=== PATIENT | male | born 1975 | race Caucasian/White ===

== ENCOUNTER 2019-04-23 15:53 | Day surgery (SDC) | payer OTHER ==
[~2019-04-23] VITALS: Ht 182.9 cm; Wt 140.9 kg
[2019-04-23 16:24] VITALS: BP 164/77; PULSE 63; TEMP 97.6
--- NOTE | 2019-04-23 16:34 | NUR ---
PATIENT ARRIVED TO ROOM 347. PATIENT ORIENTED TO ROOM. PRESENT AT THE BEDSIDE. CALL LIGHT WITHIN REACH.
[2019-04-23] MEDS ORDERED: GLUCOPHAGE850 MG/TAB PO (18:12)
[2019-04-23] MEDS ORDERED: GILENYA0.5 MG PO (18:15)
--- NOTE | 2019-04-23 19:10 | NUR ---
REPORT GIVEN TO MATA DAWKINS.
[2019-04-23 19:45] VITALS: BP 163/72; PULSE 66; TEMP 98.3
[2019-04-23 23:35] VITALS: BP 141/78; PULSE 67; TEMP 98.4
[2019-04-24 04:09] VITALS: BP 129/68; PULSE 62; TEMP 98.1
[2019-04-24 07:16] VITALS: BP 164/80; PULSE 59; TEMP 97.5
--- NOTE | 2019-04-24 09:45 | NUR ---
Patient alert and oriented, answers questions appropriately. See assessment. No c/o urinary burning, frequency or hesitancy. Urinating adequate amounts. INSTRUMENTATION ENGINEERING TECHNICIAN in place, settings verified against the MAR. No c/o at this time.
[2019-04-24 11:02] VITALS: BP 154/77; PULSE 62; TEMP 98.3
--- NOTE | 2019-04-24 13:53 | NUR ---
[facility] met with the patient and his , Nena (ph#[phone]), to discuss discharge plan. The patient lives in [place] with his and their three children. He reports independence with ADLs and does not have any DME. The patient's PCP is Dr. Shad Leal and he receives his medications at [facility]. He reports no difficulties obtaining his meds. The patient does not have advanced directives in EMR, but he states that he does have them completed. He states that his is his DPOA-HC. The patient plans to return home with his family upon discharge. No additional needs at this time.
[2019-04-24 16:45] VITALS: BP 141/68; PULSE 59; TEMP 98.5
--- NOTE | 2019-04-24 16:45 | NUR ---
Patient returns from procedures at this time, alert and oriented, status unchanged. Requests to ambulate to the bathroom and for a meal. No c/o pain or discomfort.
[2019-04-24 17:00] VITALS: BP 138/72; PULSE 61
[2019-04-24 17:15] VITALS: BP 145/62; PULSE 64
--- NOTE | 2019-04-24 17:55 | NUR ---
Discharge instructions reviewed with patient and spouse, verbalized understanding. Discharged ambulatory to auto/home with spouse at 1740.
== END 2019-04-24 17:40 | disposition home or self-care (01) ==
LOC: SURG 15:53 → SDCO 15:53 → SURG 16:06 → SDCO 04-24 17:40
DX: N20.1 Calculus of ureter (principal); E11.9 Type 2 diabetes mellitus without complications; G35 Multiple sclerosis; G47.33 Obstructive sleep apnea (adult) (pediatric); Z79.84 Long term (current) use of oral hypoglycemic drugs; Z88.0 Allergy status to penicillin; E66.01 Morbid (severe) obesity due to excess calories; Z68.42 Body mass index [BMI] 45.0-49.9, adult
CPT/HCPCS: OP; C1769; C1894; C2617; J0690; J1885; J2270; J2704; J3010; J7030; Q9967

== ENCOUNTER 2021-03-13 20:45 | Emergency (ER) | payer OTHER ==
[~2021-03-13] VITALS: Ht 182.9 cm; Wt 145.5 kg
[~2021-03-13 20:45] MED LIST: GILENYA0.5 MG PO; GLUCOPHAGE850 MG/TAB PO
[2021-03-13 21:02] VITALS: TEMP 98.9
[2021-03-14] MEDS ORDERED: NORCO 325 MG-51 TAB PO (02:29)
[2021-03-14 02:58] VITALS: BP 171/79; PULSE 75
== END 2021-03-14 02:58 | disposition home or self-care (01) ==
LOC: COL.ER 20:45
DX: M54.50 Low back pain, unspecified (principal); G35 Multiple sclerosis; Z79.899 Other long term (current) drug therapy
CPT/HCPCS: J1885; J3360